=== PATIENT | male | born 1955 | race Caucasian/White ===

== ENCOUNTER 2019-02-10 06:42 | Day surgery (SDC) | payer OTHER ==
[2019-02-08 09:42] VITALS: BMI 25.8
--- NOTE | 2019-02-09 09:41 | P.GSHP ---
History of Present Illness H&P Date: 02/09/19 Chief Complaint: Prostate cancer The patient is a 63-year-old white male evaluated for an elevated PSA level of 4.3. This prostate is mildly firm but anodular. Ultrasound showed a 30 g prostate with no echogenic abnormalities. 2 of 12 biopsies showed Sam 7 adenocarcinoma. Alternative treatment options were reviewed in detail. He chose to be treated with combination radiation therapy. He completed IMRT in early December. He was initially scheduled to undergo brachytherapy in late December, but this was canceled due to an abnormal stress test. He has now been cleared by cardiology. - Constitutional Constitutional: Denies weight loss - Genitourinary (Female) Genitourinary: Reports nocturia Past Medical History Past Medical History: Cancer, Hypertension Additional Past Medical History / Comment(s): prostate CA dx - "19 approx treatments" radiation tx last tx December 2018 History of Any Multi-Drug Resistant Organisms: None Reported Additional Past Surgical History / Comment(s): prostate bx,finger reattached as a child Past Anesthesia/Blood Transfusion Reactions: No Reported Reaction Additional Past Anesthesia/Blood Transfusion Reaction / Comment(s): no hx blood transfusion Smoking Status: Current every day smoker - Past Family History Mother Family Medical History: No Reported History Medications and Allergies Home Medications Medication Instructions Recorded Confirmed Type Atorvastatin [Lipitor] 10 mg PO DAILY 01/02/19 02/08/19 History Lisinopril-Hctz 10-12.5 mg 1 tab PO QAM 01/02/19 02/08/19 History [Zestoretic 10-12.5] Allergies Allergy/AdvReac Type Severity Reaction Status Date / Time No Known Allergies Allergy Verified 02/08/19 09:26 Surgical - Exam - General well developed, well nourished, no distress - Neck no masses, trachea midline - Respiratory normal respiratory effort, clear to auscultation - Cardiovascular Rhythm: regular Abnormal Heart Sounds: no systolic murmur, no diastolic murmur, no rub, no S3 Gallop, no S4 Gallop, no click, no other - Abdomen Abdomen: soft, non tender, no guarding, no rigid, no rebound - Genitourinary normal penis with no external lesions, testicles non-tender - Rectum Rectum: normal sphincter tone, no masses, other (Prostate mildly enlarged, smooth but firm) - Psychiatric oriented to time, oriented to person, oriented to place, speech is normal, memory intact Assessment and Plan (1) Adenocarcinoma of prostate Status: Acute Code(s): C61 - MALIGNANT NEOPLASM OF PROSTATE SNOMED Code(s): 878686719 Plan: I explained in great detail the procedure, possible outcome and possible complications of brachytherapy. I went into detail about the seed placement, explaining that we would use the ultrasound to guide the seed placement, along with the map provided by the radio-physicist. I explained that this procedure would take about 1 - 1 1/2 hours. I explained the possible complications of the implantation procedure. These include, but are not limited to, the possibility of postoperative urinary retention. I did explain that urinary retention is possible because of swelling of the gland caused by insertion of the needles, and also caused by the radiation emitted by the seeds. I explained that a catheter would be necessary for several days if retention did occur. I also explained that some discomfort in the perineal and scrotal area may be experienced in the first few days after this procedure. I discussed the possiblity of impotence (erectile dysfunction) occurring in about 7% of the cases, but that any procedure involving the prostate could lead to permanent ED. I discussed the small chance of urinary incontinence (long-term). The possibility of rectal injury due to radiation was also discussed. I informed the patient that there was some increased risk of rectal carcinoma after prostate radiation. Other risks include anesthesia, seed migration, urethral stricture, and irritative voiding symptoms (which may fail to completely resolve). The possibility of treatment failure was also reviewed, along with the possible need for adjuvant therapy.
[~2019-02-10 06:42] MED LIST: DEXAMETHASONE SOD PHOSPHATE 10 MG/ML 1 ML VIAL IV ONE; HYDROmorphone 0.5 MG/0.5 ML SYRINGE IVP PRN; LACTATED RINGERS 1,000 ML IV SCH; LIDOCAINE 1% 20 ML VIAL (10MG/ML) FOR IV START INTRADERMA PRN; MIDAZOLAM 2 MG/2 ML VIAL IV PRN; ONDANSETRON 4 MG/2 ML VIAL IVP ONE; SCOPOLAMINE 1.5MG/72HR PATCH TRANSDERM ONE
[2019-02-10] MEDS ORDERED: MIDAZOLAM 2 MG/2 ML VIAL ONE (09:21)
[2019-02-10] MEDS ORDERED: fentaNYL (PF) 50 MCG/ML 2 ML AMP ONE (09:21)
[2019-02-10] MEDS ORDERED: LIDOCAINE 1% INJ 10MG/ML (20 ML MDV) ONE (09:21)
[2019-02-10] MEDS ORDERED: SUCCINYLCHOLINE CHLORIDE 100 MG/5 ML SYR IV ONE (09:21)
[2019-02-10] MEDS ORDERED: ePHEDrine SULFATE/0.9% NACL/PF 50 MG/5 ML SYRINGE IV ONE (09:21)
[2019-02-10] MEDS ORDERED: PROPOFOL 10 MG/ML 20 ML VIAL IV ONE (09:21)
[2019-02-10] MEDS ORDERED: IOPAMIDOL-370 50ML BTL IRRIGATION ONE (09:48)
[2019-02-10] MEDS ORDERED: LACTATED RINGERS 1,000 ML IV ONE (10:00)
[2019-02-10 12:02] VITALS: TEMP 98
--- NOTE | 2019-02-10 12:19 | P.OP ---
Date of Procedure: 02/10/19 Preoperative Diagnosis: Adenocarcinoma of the Prostate Postoperative Diagnosis: Same Procedure(s) Performed: Prostate Brachytherapy Anesthesia: GETA Surgeon: Checo Shin Cardiac Rehabilitation Program Director #1: Marcelino Ferrera Estimated Blood Loss (ml): 20 IV fluids (ml): 900 Pathology: none sent Condition: stable Disposition: PACU Indications for Procedure: The patient is a 63-year-old white male evaluated for an elevated PSA level of 4.3. This prostate is mildly firm but anodular. Ultrasound showed a 30 g prostate with no echogenic abnormalities. 2 of 12 biopsies showed Sam 7 adenocarcinoma. Alternative treatment options were reviewed in detail. He chose to be treated with combination radiation therapy. He completed IMRT in early December. Operative Findings: 62 I-125 sources implanted via 22 needles. Description of Procedure: The patient was taken to the operating room and placed in the dorsolithotomy position, with his legs supported in Amadeo stirrups. The external genitalia was prepped and draped sterilely. A Gorman catheter was placed. The Siemens transrectal ultrasound probe was placed intrarectally, and the probe was then secured to the stabilizing brackets. The prostate was imaged on both the axial and sagittal planes. The 0 point was identified, and the position of the probe was manipulated until the prostate images were identical to those of the volume study. Each individual treatment needle was then placed through the perineum and into the prostate, starting with the most anterior needles and working in a posterior direction. The placement of each needle was guided by ultrasound, on both the axial and sagittal planes, to ensure accurate placement of the sources. A total of 62 I-125 sources were implanted via 22 needles. An additional 4 so urces were ordered but not used. Real-time dosimetry was utilized throughout the procedure to assess radiation dosage. Once the procedure was completed, the Gorman catheter was removed along with the ultrasound probe. Fluoroscopic imaging revealed a symmetrical distribution of sources. The 16-Chinese flexible cystoscope was used to perform cystoscopy. The anterior urethra appeared normal. The prostatic urethra showed evidence of partial obstruction. No mucosal perforations were seen within the urethra, nor were any I-125 sources seen. The bladder was examined in its entirety. Both ureteral orifices appeared normal. No tumors or foreign bodies were seen. There was no evidence of mucosal perforation of the bladder, and no I-125 sources were seen. The cystoscope was removed, and the Gorman catheter was replaced into the bladder. The patient tolerated the procedure well was taken to the recovery room in stable condition.
--- NOTE | 2019-02-10 12:28 | FL ---
Fluoroscopy HISTORY: Seed placement 1 seconds fluoroscopy time supplied to the referring clinician. intraoperative C-arm images document the procedure. See dictated report from urology.
[2019-02-10 13:00] VITALS: RESP 16
[2019-02-10 13:44] VITALS: BP 105/57; PULSE 75
--- NOTE | 2019-02-10 13:51 | XR ---
EXAMINATION TYPE: XR pelvis AP view DATE OF EXAM: 02/10/2019 CLINICAL HISTORY: Brachytherapy seed count TECHNIQUE: A single AP view of the pelvis is obtained. COMPARISON: None. FINDINGS: Radiopaque structure overlies the cranial aspect of the prostate gland and obscures superio r aspect of 2 of the brachytherapy seeds. There appear to be 29 brachytherapy seeds better left of mi dline and 33 to the right of midline. 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 No acute osseous fracture the visualized pelvis. IMPRESSION: Brachytherapy seeds as detailed above.
--- NOTE | 2019-02-10 16:26 | P.OP ---
Date of Procedure: 02/10/19 Preoperative Diagnosis: Prostate cancer - Intermediate risk Shamar 7. Postoperative Diagnosis: same as above Procedure(s) Performed: LDR Brachytherapy I-125 seed placement Implants: 62 I-125 seeds Anesthesia: MAC Surgeon: Checo Shin Analytical Technician #1: Marcelino Ferrera IV fluids (ml): 900 Pathology: none sent Condition: stable Disposition: PACU Indications for Procedure: Patient has a shamar 7 (4+3) intermediate risk prostate cancer with 2/12 cores of disease and a pre-treatment PSA of 4.3. He elected to undergo external beam radiotherapy + brachytherapy boost. Operative Findings: Patient was prepped and draped in the usual sterile fashion. Using TRUS guidance, 62 seeds were placed using 22 needles into the prostate. Real time dosimetry was used to verify adequate target coverage. Following completion of needle placement a cystoscopy was performed and found no damage to the bladder or urethra. Plain film was taken of the gland showing all 62 seeds accounted for. The patient was then taken to PACU in stable condition.
== END 2019-02-10 14:00 | disposition home or self-care (01) ==
LOC: OR 06:42
PROVIDERS: ATTEND Urology
DX: C61 Malignant neoplasm of prostate (principal); R35.1 Nocturia; I10 Essential (primary) hypertension; E78.5 Hyperlipidemia, unspecified; F17.200 Nicotine dependence, unspecified, uncomplicated; Z79.899 Other long term (current) drug therapy; Z92.3 Personal history of irradiation
CPT/HCPCS: 55875; 84132; 72170; J2250; J1100; J0690; J2405; J2001; J3010; J0330; J2704; Q9967

== ENCOUNTER → 2020-07-04 | Outpatient (CLI) | payer OTHER | END | disposition home or self-care (01) | LOC: LABWHC1 11:57 | PROVIDERS: ATTEND Radiology Radiation Oncology | DX: Z08 Encounter for follow-up examination after completed treatment for malignant neoplasm (principal); Z85.46 Personal history of malignant neoplasm of prostate; Z92.3 Personal history of irradiation; F17.210 Nicotine dependence, cigarettes, uncomplicated; C61 Malignant neoplasm of prostate | CPT/HCPCS: 36415; 84153 ==

== ENCOUNTER → 2022-02-24 | Outpatient (CLI) | payer OTHER, MEDICARE | END | disposition home or self-care (01) | LOC: LABWHC1 13:14 | PROVIDERS: ATTEND Radiology Radiation Oncology | DX: Z08 Encounter for follow-up examination after completed treatment for malignant neoplasm (principal); C61 Malignant neoplasm of prostate; F17.210 Nicotine dependence, cigarettes, uncomplicated; Z85.46 Personal history of malignant neoplasm of prostate; Z92.3 Personal history of irradiation | CPT/HCPCS: 36415; 84153 ==

== ENCOUNTER → 2023-06-16 | Outpatient (CLI) | payer OTHER, MEDICARE | END | disposition home or self-care (01) | LOC: LABWHC1 13:39 | PROVIDERS: ATTEND Radiology Radiation Oncology | DX: C61 Malignant neoplasm of prostate (principal); Z08 Encounter for follow-up examination after completed treatment for malignant neoplasm; R35.1 Nocturia; F17.210 Nicotine dependence, cigarettes, uncomplicated; Z85.46 Personal history of malignant neoplasm of prostate; Z92.3 Personal history of irradiation | CPT/HCPCS: 36415; 84153 ==